=== PATIENT | male | born 1960 | race Caucasian/White ===

== ENCOUNTER → 2020-11-24 07:32 | Outpatient (CLI) | payer BC, SELFPAY ==
--- NOTE | ~2020-11-24 | MR_ITS ---
EXAMINATION: MR femur RT wo con DATE: 11/24/2020 08:58 INDICATION: Right hamstring rupture. TECHNIQUE: Magnetic resonance imaging (MRI) of the right thigh was performed without intravenous cont rast. Sequences included axial T2-weighted FS FSE, STIR FSE, and T1-weighted FSE and coronal and sagi ttal STIR FSE and T1-weighted FSE. COMPARISON: None. FINDINGS: Bone alignment is normal. No fracture. There is complete tear of the right hamstring tendon origin at its attachment on the ischial tuberosity with 4 cm distal retraction. There is hematoma ar ound the tendon and around the sciatic nerve. There is hematoma and edema in the semimembranosus, alexey itendinosus, long head biceps femoris, and adductor pieter muscles, consistent with strains (grade 2) . There is edema in adductor longus and adductor brevis muscles, consistent with mild strains (grade 1). IMPRESSION: 1. Complete tear of right hamstring tendon origin with 4 cm distal tendon retraction. 2. Grade 2 strains of semimembranosus, semitendinosus, long head biceps femoris, and adductor pieter muscles. 3. Grade 1 strains of adductor longus and adductor brevis muscles. Reviewed, dictated and finalized at location A. IMPRESSION: 1. Complete tear of right hamstring tendon origin with 4 cm distal tendon retra ction. 2. Grade 2 strains of semimembranosus, semitendinosus, long head biceps femoris , and adductor pieter muscles. 3. Grade 1 strains of adductor longus and adductor brevis muscles.
== END ==
PROVIDERS: PCP Family Medicine; Visit Provider Family Medicine
DX: S76.311A Strain of muscle, fascia and tendon of the posterior muscle group at thigh level, right thigh, initial encounter (principal)
CPT/HCPCS: 73718